=== PATIENT | male | born 1985 | race Caucasian/White ===

== ENCOUNTER 2016-12-13 08:18 | Emergency (ER) | payer SELFPAY | END 2016-12-13 09:13 | disposition home or self-care (01) | LOC: MADERS 08:18 | DX: S91.114A Laceration without foreign body of right lesser toe(s) without damage to nail, initial encounter (principal); F17.220 Nicotine dependence, chewing tobacco, uncomplicated; W45.8XXA Other foreign body or object entering through skin, initial encounter | CPT/HCPCS: 12001 ==